=== PATIENT | male | born 1950 | race Caucasian/White ===

== ENCOUNTER 2022-05-31 13:34 | Emergency (ER) | payer MEDICARE, OTHER ==
[2022-05-31 13:50] VITALS: BP 159/73
--- NOTE | 2022-05-31 14:07 | ED Physician Documentation ---
PD HPI BACK PAIN - Stated complaint Stated Complaint: GLF/BACK PX - Chief complaint Chief Complaint: Trauma Ch/Bk - History obtained from History obtained from: Patient - History of Present Illness Timing - onset: How many days ago (3) Timing - duration: Days (3) Timing - details: Abrupt onset (fell accidentally and struck right posterolateral back/ribs. Bruising and pain, with increased pain since yesterday. feeling clicking at times.), Still present Location: Mid, Right Quality: Pain, Sharp, Aching Associated symptoms: No: Fever, Weakness, Numbness Worsened by: Movement, Lifting, Palpation Similar symptoms before: Has not had sx before Recently seen: Not recently seen Review of Systems Constitutional: denies: Fever, Chills Nose: denies: Rhinorrhea / runny nose, Congestion Throat: denies: Sore throat Cardiac: reports: Chest pain / pressure (right psoterolateral lower chest wall.) Respiratory: denies: Cough GI: denies: Abdominal Pain, Nausea, Vomiting Skin: denies: Abrasion (s), Laceration (s) Musculoskeletal: denies: Neck pain, Extremity pain PD PAST MEDICAL HISTORY - Past Medical History Cardiovascular: None Respiratory: None Neuro: None - Past Surgical History Past Surgical History: Yes HEENT: Tonsil/Adenoidectomy - Present Medications Home Medications: Ambulatory Orders Medication Instructions Recorded Confirmed guaiFENesin [Guaifenesin] 100 mg PO Q4H PRN #120 ml 12/10/15 HYDROcod/ACETAM 5/325 [[place] 5/325] 1 ea PO Q6H PRN #15 tablet 06/01/22 tiZANidine [Zanaflex] 4 mg PO Q8H PRN #25 tablet 06/01/22 - Allergies Allergies/Adverse Reactions: Allergies Allergy/AdvReac Type Severity Reaction Status Date / Time No Known Drug Allergies Allergy Verified 05/31/22 13:48 - Social History Does the pt smoke?: No Smoking Status: Never smoker Does the pt drink ETOH?: No Does the pt have substance abuse?: No - Immunizations Immunizations are current?: No PD ED PE NORMAL - Vitals Vital signs reviewed: Yes - General General: Alert and oriented X 3, No acute distress, Well developed/nourished - HEENT HEENT: Atraumatic - Neck Neck: Supple, no meningeal sign, No bony TTP - Cardiac Cardiac: RRR - Respiratory Respiratory: No respiratory distress, Clear bilaterally - Abdomen Abdomen: Soft, Non tender - Back Back: No spinal TTP, Other (tender right lower back with bruising over posterolateral lower ribs. No crepitance. ) - Derm Derm: Normal color, Warm and dry - Extremities Extremities: Normal ROM s pain - Neuro Neuro: Alert and oriented X 3, No motor deficit, Normal speech Results - Vitals Vitals: Oxygen O2 Source Room air - Rads (name of study) No standard instances Radiology: Prelim report reviewed (fracture rib 11 right. no PTX.), EMP read contemporaneously (consider hariline fx rib 12 as well. ), See rad report PD MEDICAL DECISION MAKING - ED course Complexity details: reviewed results, considered differential, d/w patient, other (The patient did call back today for now excepting of the muscle relaxants and some pain medicine. I will send prescriptions to [facility] pharmacy. I talked with his so they are expecting it to be up there.) Departure - Departure Disposition: 01 Home, Self Care Clinical Impression: Fall from slip, trip, or stumble Qualifiers: Encounter type: initial encounter Qualified Code(s): W01.0XXA - Fall on same level from slipping, tripping and stumbling without subsequent striking against object, initial encounter Rib fractures Qualifiers: Encounter type: initial encounter Fracture type: closed Laterality: right Qualified Code(s): S22.41XA - Multiple fractures of ribs, right side, initial encounter for closed fracture Condition: Stable Record reviewed to determine appropriate education?: Yes Instructions: ED Fx Rib Prescriptions: HYDROcod/ACETAM 5/325 [[place] 5/325] 1 ea PO Q6H PRN #15 tablet PRN Reason: Pain tiZANidine [Zanaflex] 4 mg PO Q8H PRN #25 tablet PRN Reason: Spasms Comments: For sure you have a minimally displaced fracture of the right 11th rib in the area of the bruising. On the CT scan there is no signs of injury to the long or kidney in the area. The radiologist reading is the single rib fracture though there is question on the picture I showed you of possible nondisplaced fracture on the 12th rib. Treatment of this would be activity as tolerated. Expect pain in the area particularly over the first week and a half as the new bone growth evolves enough to allow "sticking" of the ribs ends together. At that point there s hould be less clicking and popping etc. Consider regular use of ibuprofen or naproxen 2 tablets 3 times daily with food for the next week. To that add acetaminophen/Tylenol 650 mg 4 times daily for the next week as well. At that point you can revert to just as needed on the medicines we can assume it is going to hurt consistently the first week at least. Purposeful deep breathing to ensure a good aeration to the lung in the area. Activity as tolerated. This should improve a fair amount over the first week and a half but take about 4 weeks for healing. Discharge Date/Time: 05/31/22 16:44
[2022-05-31] MEDS ORDERED: HYDROcod/ACETAM 5/325 MG TABLET PO STA (14:53)
--- NOTE | 2022-05-31 16:02 | CT Report ---
PROCEDURE: CHEST WO INDICATIONS: fall struck right posterior ribs; pain TECHNIQUE: Noncontrast 1mm axial images were acquired from the pulmonary apices to the posterior costophrenic an gles. Axial 5 mm soft tissue kernel reconstructions were performed as well as 8 mm axial MIP and cor onal and sagittal 5 mm reformations. For radiation dose reduction, the following was used: automate d exposure control, adjustment of mA and/or kV according to patient size. COMPARISON: Chest x-ray 12/10/2015 FINDINGS: Image quality: Excellent. Lungs and pleura: No acute air space opacities. No pleural effusions or pneumothorax. Central and peripheral airways are patent and normal in caliber. Mediastinum: Heart size is normal. No pericardial effusion. No mediastinal adenopathy by size crit eria. Thoracic aorta and central pulmonary arteries are normal in size. Esophagus is normal in olayinka stuart. Mild hiatal hernia. Bones and chest wall: No suspicious bony lesions. No vertebral body compression fractures. No axil elana or supraclavicular adenopathy by size criteria. The thyroid is normal in size and there are no incidental findings. There is a minimally displaced posterior right 11th rib fracture. Abdomen: Simple hepatic dome cyst measuring 1.2 cm is present. Visualized upper abdominal solid orga ns and bowel loops appear normal in the absence of contrast. IMPRESSION: Minimally displaced posterior right 11th rib fracture. CLINICAL RECOMMENDATION STATEMENTS: In patients <35 years with an ITN detected on CT, MRI, or extrathyroidal ultrasound, the Committee re commends further evaluation with dedicated thyroid ultrasound if the nodule is "e1 cm and has no susp icious imaging features, and if the patient has normal life expectancy. In patients "e35 years with an ITN detected on CT, MRI, or extrathyroidal ultrasound, the Committee r ecommends further evaluation with dedicated thyroid ultrasound if the nodule is "e1.5 cm and has no s uspicious imaging features, and if the patient has normal life expectancy. (ACR, 2014) Reviewed by: Prabha Zhang MD on 05/31/2022 4:01 PM PDT Approved by: Prabha Zhang MD on 05/31/2022 4:01 PM PDT Station ID: [id number]
== END 2022-05-31 16:44 | disposition home or self-care (01) ==
LOC: ED 13:34
DX: S22.41XA Multiple fractures of ribs, right side, initial encounter for closed fracture (principal); W18.30XA Fall on same level, unspecified, initial encounter
CPT/HCPCS: 71250; 99284; A9270